=== PATIENT | male | born 1990 | race Caucasian/White ===

== ENCOUNTER 2016-11-30 06:38 | Emergency (ER) | payer OTHER ==
[2016-11-30 09:26] VITALS: BP 120/82
== END 2016-11-30 09:25 | disposition home or self-care (01) ==
LOC: ED 06:38
DX: R06.02 Shortness of breath (principal)
CPT/HCPCS: J1100

== ENCOUNTER 2017-04-09 00:19 | Emergency (ER) | payer OTHER ==
[~2017-04-09] VITALS: Ht 167.6 cm; Wt 63.5 kg
[2017-04-09 00:24] VITALS: Ht 167.6 cm; Wt 63.5 kg
[2017-04-09 01:10] VITALS: BP 136/83
== END 2017-04-09 01:10 | disposition home or self-care (01) ==
LOC: ED 00:19
DX: K08.89 Other specified disorders of teeth and supporting structures (principal)
CPT/HCPCS: 83880

== ENCOUNTER 2017-05-12 16:37 | Emergency (ER) | payer OTHER ==
[~2017-05-12] VITALS: Ht 167.6 cm; Wt 63.5 kg
[2017-05-12 16:39] VITALS: Ht 167.6 cm; Wt 63.5 kg
[2017-05-12 17:27] VITALS: BP 131/76
== END 2017-05-12 17:27 | disposition home or self-care (01) ==
LOC: ED 16:37
DX: R07.89 Other chest pain (principal)

== ENCOUNTER 2017-11-26 23:39 | Emergency (ER) | payer OTHER ==
[2017-11-27 00:59] VITALS: BP 115/80
== END 2017-11-27 00:59 | disposition home or self-care (01) ==
LOC: ED 23:39
DX: J20.9 Acute bronchitis, unspecified (principal); F90.9 Attention-deficit hyperactivity disorder, unspecified type
CPT/HCPCS: J7512; J7620

== ENCOUNTER 2018-01-22 01:10 | Emergency (ER) | payer OTHER ==
[~2018-01-22] VITALS: Ht 167.6 cm; Wt 64.0 kg
[2018-01-22 01:13] VITALS: BP 127/63; Ht 167.6 cm; Wt 64.0 kg
== END 2018-01-22 02:09 | disposition home or self-care (01) ==
LOC: ED 01:10
DX: S02.5XXA Fracture of tooth (traumatic), initial encounter for closed fracture (principal); X58.XXXA Exposure to other specified factors, initial encounter; Y93.89 Activity, other specified; Y92.89 Other specified places as the place of occurrence of the external cause; Y99.8 Other external cause status; F90.9 Attention-deficit hyperactivity disorder, unspecified type

== ENCOUNTER 2018-12-07 20:38 | Emergency (ER) | payer BC, OTHER ==
[~2018-12-07] VITALS: Ht 167.6 cm; Wt 63.5 kg
[2018-12-07 20:42] VITALS: Ht 167.6 cm; Wt 63.5 kg
[2018-12-07 21:40] VITALS: BP 129/60
== END 2018-12-07 21:40 | disposition home or self-care (01) ==
LOC: ED 20:38
DX: K40.90 Unilateral inguinal hernia, without obstruction or gangrene, not specified as recurrent (principal)

== ENCOUNTER 2020-03-20 22:21 | Emergency (ER) | payer OTHER ==
[~2020-03-20] VITALS: Ht 167.6 cm; Wt 68.9 kg
[2020-03-20 22:36] VITALS: Ht 167.6 cm; Wt 68.9 kg
[2020-03-21] MEDS ORDERED: PREDNISONE50 MG PO (01:01)
[2020-03-21] MEDS ORDERED: PROAIR DIGIHAL90 MCG IH (01:05)
[2020-03-21 01:18] VITALS: BP 125/60
== END 2020-03-21 01:19 | disposition home or self-care (01) ==
LOC: ED 22:21
DX: J45.901 Unspecified asthma with (acute) exacerbation (principal); F90.9 Attention-deficit hyperactivity disorder, unspecified type
CPT/HCPCS: J7512; J7613; J7644